=== PATIENT | male | born 1995 | race African-American/Black ===

== ENCOUNTER 2016-09-19 21:48 | Inpatient (IN) | payer OTHER ==
--- NOTE | ~2016-09-19 | DS ---
Unit #: [id number] #: [id number] Patient: CHUY CLEMENTE [id number] [facility] [address] [place] [address] [id number] I MR#: [id number] NAME: CHUY CLEMENTE ROOM: [facility] Age: 21 Sex: M Admission Date: 09/19/2016 : 1995 Discharge Date: 09/26/2016 Attending Physician: Suleiman Howell M.D. Primary Care Physician: Generic Doctor Not In System DISCHARGE SUMMARY REASON FOR ADMISSION The patient is a 21-year-old male, admitted in a manic phase of bipolar disorder. HOSPITAL COURSE The patient was admitted to the [address] [place] [address] unit and continued on previously prescribed medications. Consideration was given to initiation of Invega Sustenna and the patient was in fact started on Invega at a dose of 12 mg daily. He had required during his early days of hospitalization multiple p.r.n.'s after becoming combative with staff; however, his mood symptoms seemed to mitigate significantly with medication compliance. Unfortunately, the patient did not wish to begin Invega Sustenna. This medication was therefore discontinued and the patient was then begun on Risperdal which was titrated to a dose of 3 mg b.i.d. The patient tolerated the medication without complaint and showed slow, but steady improvement. On 09/26/2016, Depakote level was pending. The patient at that point was no longer felt to meet criteria for involuntary hospitalization. As per his request, discharge was ordered. FINAL DIAGNOSIS Bipolar disorder, most recent episode manic. DISPOSITION ON DISCHARGE The patient is discharged on the following medications; Trileptal 300 mg b.i.d. for mood stabilization, Cogentin 1 mg b.i.d. for parkinsonian symptoms, Desyrel 150 mg at h.s. p.r.n. insomnia, Depakote ER 1500 mg at h.s. for mood stabilization, melatonin 6 mg at h.s. p.r.n. insomnia, Flonase once daily for environmental allergies, Risperdal 3 mg b.i.d. for mood stabilization. DISCHARGE INSTRUCTIONS No dietary or physical restrictions were placed on the patient at the time of discharge. FOLLOWUP He will follow up through the auspices of community mental health agencies and will be referred to the transitions program. PROGNOSIS His prognosis is considered fair. Dictated by... Unit #: [id number] #: [id number] Patient: CHUY CLEMENTE M.D. CB/jerald TD: 09/26/2016 22:25 JOB #: [id number] DISCHARGE SUMMARY X Suleiman Howell MD X DISCHARGE SUMMARY
--- NOTE | ~2016-09-19 | PN ---
Unit #: [id number] #: [id number] Patient: CHUY CLEMENTE [id number] [facility] [address] [place] [address] [id number] I MR#: [id number] NAME: CHUY CLEMENTE ROOM: 16 Age: 21 Sex: M Admission Date: 09/19/2016 : 1995 Attending Physician: Suleiman Howell M.D. Admitting Physician: Suleiman Howell M.D. Primary Care Physician: Generic Doctor Not In System [facility] PROGRESS NOTES DATE 09/23/2016 DISCUSSION The patient is now expressing hesitance to consider initiation of depo medication. If this is going to be the case we will probably discontinue Invega and go back to Risperdal which is a more readily affordable and available but I will continue to encourage (1)___ medication. The patient seems calmer today with the increased doses of Depakote and Invega. Dictated by... Suleiman Howell M.D. CB/twan TD: 09/24/2016 04:10 JOB #: [id number] [facility] PROGRESS NOTES X Suleiman Howell MD PROGRESS NOTE
--- NOTE | ~2016-09-19 | PA ---
Unit #: [id number] #: [id number] Patient: CHUY CLEMENTE [id number] [facility] [address] [place] [address] [id number] I MR#: [id number] NAME: CHUY CLEMENTE ROOM: [facility] Age: 21 Sex: M Admission Date: 09/19/2016 : 1995 Date of Assessment: 09/20/2016 Attending Physician: Suleiman Howell M.D. Admitting Physician: Suleiman Howell M.D. Primary Care Physician: Generic Doctor Not In System PSYCHIATRIC ASSESSMENT IDENTIFYING INFORMATION The patient is a 21-year-old male admitted in transfer from [facility] after exhibiting [facility] psychosis [facility]. INFORMANT(S) Patient. RELIABILITY Fair. CHIEF COMPLAINT None given. HISTORY OF PRESENT ILLNESS The patient is a 21-year-old male with a history of bipolar disorder. [facility] but his behavior had at that facility deteriorated and he has been brought to this facility. The patient has apparently been less than optimally compliant with medications. He has been reporting increasing amish preoccupation and auditory hallucinations. This morning, he has required seclusion and restraint and 2 IM injections but is quite groggy and calm after receiving Haldol, Ativan and Benadryl. The patient is followed at [facility] and is prescribed Trileptal, Depakote, Risperdal, Cogentin and trazodone. PAST PSYCHIATRIC HISTORY The patient has a history of bipolar disorder. FAMILY HISTORY Not obtained. SOCIAL HISTORY Not obtained secondary to the patient's grogginess. MEDICAL HISTORY Noncontributory. MEDICATION HISTORY 1. Trileptal. 2. Depakote. 3. Risperdal. 4. Trazodone. Unit #: [id number] #: [id number] Patient: CHUY CLEMENTE 5. Cogentin. ALLERGIES None. MENTAL STATUS EXAM At this time, reveals the patient to be an obese male appearing his stated age. He is quite groggy but arouses for interview and is pleasant and cooperative with this physician requesting to shake hands. ASSETS AND LIABILITIES Patient's assets, motivation for change. Liabilities, poor compliance with treatment, severity of illness. ADMITTING DIAGNOSES Bipolar disorder, manic phase. PSYCHIATRIC PLAN/TREATMENT GOALS The patient remains hospitalized for safety and stabilization. We will continue his previously prescribed medication and consider initiation of Depo medication as the patient's stay progresses. To this end, I will discontinue the patient's previously prescribed risperidone and begin Invega so that we may begin a possible trial of Invega Sustenna. Dictated by... Suleiman Howell M.D. MAURO/kolby TD: 09/20/2016 15:18 JOB #: [id number] PSYCHIATRIC ASSESSMENT X Suleiman Howell MD X PSYCHIATRIC ASSESSMENT
--- NOTE | ~2016-09-19 | PN ---
Unit #: [id number] #: [id number] Patient: CHUY CLEMENTE [id number] [facility] [address] [place] [address] [id number] I MR#: [id number] NAME: CHUY CLEMENTE ROOM: 16 Age: 21 Sex: M Admission Date: 09/19/2016 : 1995 Attending Physician: Suleiman Howell M.D. Admitting Physician: uSleiman Howell M.D. Primary Care Physician: Generic Doctor Not In System [facility] PROGRESS NOTES DATE 09/25/2016 DISCUSSION The Depakote level is pending from this morning. The patient did agree to sign in for voluntary treatment this morning, and his behavior has improved considerably since his admission to the hospital. Should he sustain progress, discharge should likely take place as early as tomorrow. Dictated by... Suleiman Howell M.D. CB/liss TD: 09/25/2016 15:02 JOB #: [id number] [facility] PROGRESS NOTES X Suleiman Howell MD X PROGRESS NOTE
--- NOTE | ~2016-09-19 | PN ---
Unit #: [id number] #: [id number] Patient: CHUY CLEMENTE [id number] [facility] [address] [place] [address] [id number] I MR#: [id number] NAME: CHUY CLEMENTE ROOM: 16 Age: 21 Sex: M Admission Date: 09/19/2016 : 1995 Attending Physician: Suleiman Howell M.D. Admitting Physician: Suleiman Howell M.D. Primary Care Physician: Cheri Doctor Not In System [facility] PROGRESS NOTES DATE 09/21/2016 DISCUSSION The patient has had some ongoing symptoms of psychosis requiring a p.r.n. dose of Haldol, Benadryl and Ativan this morning. We have begun his trial of Invega and hope to begin treatment with a Depo medication early next week. Dictated by... Suleiman Howell M.D. CB/kolby TD: 09/21/2016 17:50 JOB #: [id number] [facility] PROGRESS NOTES X Suleiman Howell MD X PROGRESS NOTE
--- NOTE | ~2016-09-19 | PN ---
Unit #: [id number] #: [id number] Patient: CHUY CLEMENTE [id number] [facility] [address] [place] [address] [id number] I MR#: [id number] NAME: CHUY CLEMENTE ROOM: 16 Age: 21 Sex: M Admission Date: 09/19/2016 : 1995 Attending Physician: Suleiman Howell M.D. Admitting Physician: Suleiman Howell M.D. Primary Care Physician: Cheri Doctor Not In System [facility] PROGRESS NOTES DATE 09/22/2016 DISCUSSION The patient complains of ongoing poor sleep and anjum. I will significantly increase his Depakote to 1500 mg at bedtime, and we will also increase Invega to 12 mg in anticipation of possible initiation of Depo Invega administration. Dictated by... Sergey Armenta TD: 09/22/2016 12:59 JOB #: [id number] [facility] PROGRESS NOTES X Suleiman Howell MD PROGRESS NOTE
--- NOTE | ~2016-09-19 | PN ---
Unit #: [id number] #: [id number] Patient: CHUY CLEMENTE [id number] [facility] [address] [place] [address] [id number] I MR#: [id number] NAME: CHUY CLEMENTE ROOM: 16 Age: 21 Sex: M Admission Date: 09/19/2016 : 1995 Attending Physician: Suleiman Howell M.D. Admitting Physician: Suleiman Howell M.D. Primary Care Physician: Generic Doctor Not In System [facility] PROGRESS NOTES DATE 09/24/2016 DISCUSSION The patient complains of feeling as though he is "in a fog." Since he is not going to go forward with the Invega Sustenna shot I will discontinue that medication and restart the patient on Risperdal and we will check a Depakote level. Dictated by... Suleiman Howell M.D. CB/twan TD: 09/24/2016 21:47 JOB #: [id number] [facility] PROGRESS NOTES X Suleiman Howell MD PROGRESS NOTE
--- NOTE | ~2016-09-19 | HP ---
Unit #: [id number] #: [id number] Patient: CHUY CLEMENTE [id number] [place] [address] [id number] I MR#: [id number] NAME: CHUY CLEMENTE ROOM: P122 Age: 21 Sex: M Admission Date: 09/19/2016 : 1995 Attending Physician: Suleiman Howell M.D. Admitting Physician: Suleiman Howell M.D. Primary Care Physician: Generic Doctor Not In System HISTORY AND PHYSICAL HISTORY OF PRESENT ILLNESS Ronnie is a 21-year-old male admitted to [address] [place] [address] for bipolar disorder. He is also having delusions and suicidal threats. PAST MEDICAL HISTORY Seasonal allergies. PAST SURGICAL HISTORY None. SOCIAL HISTORY No tobacco or illegal drug use. Occasional alcohol use. He is currently single and living with mother. FAMILY HISTORY Noncontributory. REVIEW OF SYSTEMS CONSTITUTIONAL: No fever or chills. HEENT: Denies any sore throat, ear pain or runny nose. CARDIOVASCULAR: Denies chest pain, irregular heart rhythm or palpitations. CHEST: Denies shortness of breath or cough. No hemoptysis. GASTROINTESTINAL: Denies nausea, vomiting, diarrhea or chronic constipation. ENDOCRINE: Denies history of increased thirst or urination. No recent significant weight loss or gain. GENITOURINARY: Denies dysuria, frequency, or hematuria. SKIN: Denies any rashes. HEMATOLOGIC: Denies history of increased bleeding or bruising. MUSCULOSKELETAL: Denies any hot, swollen joints. No generalized muscle pain. NEUROLOGIC: Denies problems with vision or speech. No frequent, severe headaches. No numbness, tingling or weakness in any extremities. Denies loss of bladder or bowel control. CURRENT MEDICATIONS Trileptal, Depakote, Risperdal, Cogentin and trazodone. ALLERGIES No known drug allergies. Unit #: [id number] #: [id number] Patient: CHUY CLEMENTE PHYSICAL EXAMINATION GENERAL: Alert, oriented, in no acute distress. VITAL SIGNS: Blood pressure 131/71, heart rate 90, respirations 18, temperature 98.4. HEIGHT: 6 foot. WEIGHT: 226 pounds. SKIN: Warm and dry without rash or lesion. HEENT: Normocephalic. TMs not viewed. Oral and nasal passages clear. Conjunctivae clear. PERRLA. EOMs intact. NECK: Supple without lymphadenopathy or thyromegaly. HEART: Regular rate and rhythm without murmur. LUNGS: Clear. ABDOMEN: Soft, nontender, without masses or hepatosplenomegaly. : Not done. EXTREMITIES: No evidence of cyanosis, clubbing or edema. Moves all without focal deficit. NEUROLOGICAL: Grossly within normal limits. Cranial Nerves: II: Visual freeman are intact. III, IV AND : Extraocular movements are intact. Pupils are equal, round and reactive to light. V: Facial sensation is grossly normal. VII: Facial movements and expression are normal. VIII: Auditory acuity grossly intact. IX, X: Uvula is midline. Phonation is normal. XI: Patient shrugs shoulders and turns head normally. XII: Tongue protrudes in the midline. Sensory and Motor Function: Sensory and motor sensation is grossly normal. Motor: moves all extremities well. Coordination: Gait is normal. Deep Tendon Reflexes: Intact. IMPRESSION 1. Psychiatric admission. 2. Seasonal allergies. RECOMMENDATIONS Psychiatric, per psychiatrist. MEDICAL: I see no contraindications to participating in facility's activities. MEDICAL PROGNOSIS Good. MEDICAL CONDITION Stable. Dictated by... Gretel Hu/twan TD: 09/20/2016 19:31 JOB #: [id number] Unit #: [id number] #: [id number] Patient: CHUY CLEMENTE HISTORY AND PHYSICAL X MAIRA BLAIR APRN X HISTORY AND PHYSICAL
[2016-09-21 09:30] LABS: BASOPHIL% 0.8 % (0-2.5); EOSINOPHIL% 0.7 % (0.0-7.0); HEMATOCRIT 43.6 % (38.0-50.0); HEMOGLOBIN 14.8 gm/dL (13.0-16.0); LYMPHOCYTE# 1.7 X10e3 (1.0-3.5); MEAN CELL VOLUME 84.2 FL (83-96); MEAN CORPUSCULAR HEMOGLOBIN 28.6 PG (28-34); MEAN CORPUSCULAR HGB CONC 33.9 g/dL (30-36); MEAN PLATELET VOLUME 7.7 FL (6.5-11.5); MONOCYTE# 0.8 X10e3 (0-1.0); MONOCYTE% 13.7 % (3.0-12.0); NEUTROPHIL# 3.4 X10e3 (1.5-7.1); NEUTROPHIL% 56.8 % (40-75); PLATELET COUNT 254 X10e3 (140-420); RED BLOOD COUNT 5.18 X10e (3.90-5.60); RED CELL DISTRIBUTION WIDTH 13.1 % (11.0-15.5)
[2016-09-21 09:39] LABS: DIFF IND NO
[2016-09-21 09:49] LABS: THYROID STIMULATING HORMONE 1.08 uIU/ml (0.34-5.60)
[2016-09-21 09:56] LABS: FREE THYROXIN (T4) 0.98 ng/dL (0.58-1.64)
[2016-09-21 10:07] LABS: ALBUMIN SERUM 4.7 g/dL (3.5-5.0); ALKALINE PHOSPHATASE 48 U/L (32-92); ALT (SGPT) 37 U/L (10-40); AST (SGOT) 35 U/L (10-42); BILIRUBIN,TOTAL 0.6 mg/dL (0.2-2.0); BLOOD UREA NITROGEN 11 mg/dL (9-23); CALCIUM SERUM 10.1 mg/dL (8.4-10.2); CARBON DIOXIDE 26 mmol/L (22-31); CHLORIDE 102 mmol/L (100-111); CREATININE SERUM 1.1 mg/dL (0.6-1.4); DEPAKENE (VALPROIC ACID) 21 ug/mL (50-125); GLOM FILT RATE Estimated ABOVE60 mL/min (>60); GLUCOSE FASTING 81 mg/dL (70-110); POTASSIUM 4.5 mmol/L (3.5-5.1); PROTEIN TOTAL SERUM 7.7 g/dL (6.0-8.3); SODIUM 137 mmol/L (135-145)
== END 2016-09-26 13:55 | disposition home or self-care (01) | DRG 885 ==
LOC: P1S 21:48
PROVIDERS: Specialist
DX: F31.10 Bipolar disorder, current episode manic without psychotic features, unspecified (principal)
CPT/HCPCS: 80053; 80164; 82140; 84439; 84443; 85025; J1200; J1630; J2060; J3486